=== PATIENT | female | born 1970 | race Caucasian/White ===

== ENCOUNTER 2017-02-04 10:03 | Observation (INO) ==
[2017-02-04] MEDS ORDERED: Aspirin 81 MG TAB.CHEW PO ONE (10:19)
[2017-02-04] MEDS ORDERED: Nitroglycerin 0.4 MG TAB.SUBL SL ONE (10:19)
--- NOTE | 2017-02-04 10:22 | Emergency Department Note ---
Disposition Clinical Impression: Tobacco abuse Chest pain Qualifiers: Chest pain type: unspecified Qualified Code(s): R07.9 - Chest pain, unspecified Disposition: Admitted As Inpatient Condition: Good Referrals: Curt Juarez DO [Primary Care Provider] - Forms: ED Satisfaction Letter General Adult HPI - General Chief complaint: ED Chest Pain Stated complaint: Havin chest pains Time Seen by Provider: 02/04/17 10:09 Source: patient Mode of arrival: ambulatory Limitations: no limitations Nursing Notes Reviewed: Yes Vital Signs Reviewed: Yes - History of Present Illness HPI Narrative: Patient is a 46-year-old white female with a history of hypertension who presents to the emergency department today after she was awakened at 4 AM with left-sided chest pain radiating through to her back as well as into her left- sided neck and chest associated with some mild shortness of breath. Patient states the pain has been constant and rates it an 8 out of 10 in severity this morning, and denies any diaphoresis, no nausea vomiting, no abdominal pain back pain or flank pain. Patient sees Dr. Mariano in cardiology and has currently recorder, states she has been following with him for chest pain. Patient had a remote cardiac catheterization but no recent stress testing or intervention. Patient states she was recently taken off her blood pressure medicine due to her potassium getting low. She did take her normal medications including 1 baby aspirin this morning with no change in her symptoms. Pain Scale: 8 - Related Data Home Medications Medication Instructions Recorded Confirmed Aspirin [Adult Low Dose Aspirin EC] 81 mg PO QAM 04/02/15 04/02/15 Chlorthalidone 25 mg PO QAM 04/02/15 04/02/15 Ibuprofen [Motrin] 800 mg PO Q8HR 04/02/15 04/02/15 Meclizine [Antivert] 25 mg PO BID 04/02/15 04/02/15 Pantoprazole Sodium [Protonix] 40 mg PO QAM 04/02/15 04/02/15 Ranitidine HCl [Zantac] 150 mg PO BID 04/02/15 04/02/15 Venlafaxine [Effexor] 75 mg PO BID 04/02/15 04/02/15 clonazePAM [Klonopin] 0.5 mg PO BID 04/02/15 04/02/15 hydrOXYzine HCl [Hydroxyzine HCl] 25 mg PO Q4-6H 04/02/15 04/02/15 Previous Rx's Medication Instructions Recorded Docusate [Colace] 100 mg PO BID PRN #30 capsule 04/03/15 OxyCODONE/APAP 5/325 [Percocet 1 each PO Q4HR PRN #30 tablet 04/03/15 5/325 MG] Cyclobenzaprine HCl 5 mg PO DAILY #3 tablet 04/15/16 Diclofenac Potassium 50 mg PO TID PRN #20 tablet 04/15/16 Triamcinolone Acet Dentl Paste 20 appl DT TID #1 tube 04/15/16 [Kenalog In Orabase] Ondansetron [Zofran ODT] 8 mg SL TID PRN #12 tab.rapdis 10/16/16 Sulfamethoxazole/Trimeth DS 1 each PO BID #20 tablet 10/16/16 [Bactrim DS] Tamsulosin [Flomax] 0.4 mg PO DAILY #5 cap.er.24h 10/16/16 metroNIDAZOLE [Flagyl] 500 mg PO TID #30 tablet 10/16/16 Allergies Allergy/AdvReac Type Severity Reaction Status Date / Time No Known Allergies Allergy Verified 11/14/16 11:05 All systems ED: reviewed and negative except as stated. Constitutional: Denies: fever, chills Cardiovascular: Reports: chest pain. Denies: palpitations, dyspnea on exertion , orthopnea, syncope, paroxysmal nocturnal dyspnea Respiratory: Reports: dyspnea. 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, other - Social History Smoking Status: Current every day smoker Smokeless Tobacco Status: No Alcohol use: Reports: none Drug use: Reports: none Physical Exam - General Limitations: no limitations General appearance: alert, in no apparent distress - Head Head exam: atraumatic, normocephalic, normal inspection - Eye Eye exam: Present: normal appearance, PERRL, EOMI - ENT ENT exam: normal exam, normal oropharynx, mucous membranes moist - Neck Neck exam: Present: normal inspection, full ROM - Chest Chest inspection: Present: normal inspection, symmetric chest wall rise - Respiratory Respiratory exam: Present: normal lung sounds bilaterally. Absent: respiratory distress, wheezes - Cardiovascular Cardiovascular exam: Present: regular rate, normal rhythm, normal heart sounds - Abdominal Exam Abdominal exam: Present: soft, Non-Tender, normal bowel sounds. Absent: tenderness - Extremities Exam Extremities exam: Present: normal inspection. Absent: tenderness, pedal edema - Neurological Exam Neurological exam: Present: alert, oriented X3, CN II-XII intact, normal gait, reflexes normal. Absent: motor sensory deficit - Psychiatric Psychiatric exam: Present: normal affect, normal mood - Skin Skin exam: Present: warm, dry, intact, normal color. Absent: rash, diaphoresis Course Course Narrative: Patient is 38-year-old white female who presents emergency Department with 8 out of 10 left sided chest pain since 4 AM which has been constant. Patient with a history of hypertension, nonsmoker. Patient has had a remote workup for chest pain will review patient's records to determine accurate cardiac history. She currently is seeing Dr. Mariano and has a loop recorder in place. 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 Patient is hemodynamically stable on arrival here and in no acute distress. - Reevaluation(s) Reevaluation #1: Patient is resting comfortably at bedside taxing on her phone and in no acute distress at this time. Patient is receiving a small fluid bolus for hypotension secondary to nitroglycerin administration. Patient received one sublingual nitroglycerin and currently is rating her pain a 5 out of 10 in severity from an 8 when she arrived. Pressure recheck following fluid bolus pressure remains right around 90 systolic so we will hold any further nitroglycerin. Patient is rating her pain a 5 out of 10 in severity at this time significantly improve with nitroglycerin I suspect we could have gotten her pain-free if her blood pressure would have improved. Spoke with the hospitalist regarding the patient's symptoms and feel patient would benefit from admission and further evaluation I could not find any prior stress testing or cardiac notes in regards to her currently per quarter any prior management other than old EKGs in our system. Time: 11:34 Vital Signs Temperature 98.0 F 02/04/17 10:05 Pulse Rate 99 02/04/17 10:05 Respiratory Rate 18 02/04/17 10:05 Blood Pressure 139/86 02/04/17 10:05 O2 Sat by Pulse Oximetry 95 02/04/17 10:05 Temperature 98.0 F 02/04/17 10:05 Pulse Rate 91 02/04/17 11:35 Respiratory Rate 16 02/04/17 11:35 Blood Pressure 97/64 02/04/17 11:35 O2 Sat by Pulse Oximetry 97 02/04/17 11:35 Oxygen Delivery Oxygen Delivery Room Air Medical Decision Making - Medical Records Medical records reviewed: Yes I reviewed the patient's medical records. - Lab Data Lab results reviewed: Yes I reviewed the patient's lab results. Result diagrams: 02/04/17 10:30 02/04/17 10:30 Lab Results 02/04/17 02/04/17 02/04/17 Range/Units 10:30 10:30 10:30 WBC 9.2 (4.3-11.1) K/mcL RBC 4.58 (3.82-4.97) M/mcL Hgb 14.7 (11.5-15.4) g/dL Hct 42.0 (35.3-44.9) % MCV 91.7 (83.0-100.0) fL MCH 32.1 (28.0-33.3) pg MCHC 35.0 (31.6-35.5) g/dL RDW 12.3 (11.5-14.5) % Plt Count 233 (140-400) K/mcL MPV 10.0 (9.4-12.4) fL Immature Gran % 0.3 (0-4) % Seg Neutrophils % 66.5 % Lymphocytes % 24.9 % Monocytes % 6.3 % Eosinophils % 1.7 % Basophils % 0.3 % Neutrophils # 6.1 (1.6-8.9) K/mcL Lymphocytes # 2.3 (0.6-4.6) K/mcL Monocytes # 0.6 (0.0-1.3) K/mcL Eosinophils # 0.2 (0.0-0.6) K/mcL Basophils # 0.0 (0.0-0.2) K/mcL PT 11.4 (9.4-12.1) Seconds INR 1.1 APTT 30.2 (26.0-36.0) Seconds Sodium (136-145) mEq/L Potassium (3.5-4.5) mEq/L Chloride (98-109) mEq/L Carbon Dioxide (19-29) mEq/L BUN (7-20) mg/dL Creatinine (0.57-1.11) mg/dL Est GFR ( Amer) (> 60) Est GFR (Non-Af Amer) (> 60) BUN/Creatinine Ratio (6-26) Glucose (70-99) mg/dL Calculated Osmolality (280-300) Calcium (8.6-10.8) mg/dL Troponin I (0-0.03) ng/mL B-Natriuretic Peptide 50 (0-100) pg/mL 02/04/17 02/04/17 Range/Units 10:30 10:30 WBC (4.3-11.1) K/mcL RBC (3.82-4.97) M/mcL Hgb (11.5-15.4) g/dL Hct (35.3-44.9) % MCV (83.0-100.0) fL MCH (28.0-33.3) pg MCHC (31.6-35.5) g/dL RDW (11.5-14.5) % Plt Count (140-400) K/mcL MPV (9.4-12.4) fL Immature Gran % (0-4) % Seg Neutrophils % % Lymphocytes % % Monocytes % % Eosinophils % % Basophils % % Neutrophils # (1.6-8.9) K/mcL Lymphocytes # (0.6-4.6) K/mcL Monocytes # (0.0-1.3) K/mcL Eosinophils # (0.0-0.6) K/mcL Basophils # (0.0-0.2) K/mcL PT (9.4-12.1) Seconds INR APTT (26.0-36.0) Seconds Sodium 138 (136-145) mEq/L Potassium 3.6 (3.5-4.5) mEq/L Chloride 108 (98-109) mEq/L Carbon Dioxide 22 (19-29) mEq/L BUN 10 (7-20) mg/dL Creatinine 0.72 (0.57-1.11) mg/dL Est GFR ( Amer) > 60 (> 60) Est GFR (Non-Af Amer) > 60 (> 60) BUN/Creatinine Ratio 14 (6-26) Glucose 138 H (70-99) mg/dL Calculated Osmolality 287 (280-300) Calcium 9.1 (8.6-10.8) mg/dL Troponin I 0.00 (0-0.03) ng/mL B-Natriuretic Peptide (0-100) pg/mL - Radiology Data Radiology results reviewed: Yes I reviewed the patient's radiology results. Chest X-Ray 02/04/17 10:19 IMPRESSION: 1. No acute radiographic finding to account for patient's chest pain. D/ / Андрей Petit MD / Андрей Petit MD Interpreting Provider: Андрей Petit MD - EKG Data EKG #1 EKG results narrative: Patient's EKG shows normal sinus rhythm at 85 bpm with nonspecific T wave flattening throughout which is not new compared to her prior EKG from 2016.
[2017-02-04 10:39] LABS: Basophils % 0.3 %; Eosinophils # 0.2 K/mcL (0.0-0.6); Eosinophils % 1.7 %; Hemoglobin 14.7 g/dL (11.5-15.4); Immature Granulocytes % 0.3 % (0-4); Lymphocytes # 2.3 K/mcL (0.6-4.6); Lymphocytes % 24.9 %; Mean Corpuscular Hemoglobin 32.1 pg (28.0-33.3); Mean Corpuscular Volume 91.7 fL (83.0-100.0); Monocytes # 0.6 K/mcL (0.0-1.3); Monocytes % 6.3 %; Neutrophils # 6.1 K/mcL (1.6-8.9); Platelet Count 233 K/mcL (140-400); Red Blood Count 4.58 M/mcL (3.82-4.97); Red Cell Distribution Width 12.3 % (11.5-14.5); Segmented Neutrophils % 66.5 %
[2017-02-04 10:44] LABS: INR 1.1; Prothrombin Time 11.4 Seconds (9.4-12.1)
[2017-02-04] MEDS ORDERED: 0.9 % Sodium Chloride 500 ML IVC ONE (10:46)
[2017-02-04 10:47] LABS: Activated Partial Thrombo Time 30.2 Seconds (26.0-36.0)
[2017-02-04 10:51] LABS: BUN/Creatinine Ratio 14 (6-26); Blood Urea Nitrogen 10 mg/dL (7-20); Calcium 9.1 mg/dL (8.6-10.8); Carbon Dioxide 22 mEq/L (19-29); Chloride 108 mEq/L (98-109); Glucose 138 mg/dL (70-99); Osmolality,Calculated 287 (280-300); Potassium 3.6 mEq/L (3.5-4.5); Sodium 138 mEq/L (136-145); eGFR For African Americans > 60 (> 60); eGFR For Non-African Americans > 60 (> 60)
[2017-02-04] MEDS ORDERED: Naloxone 0.4 MG/ML INJ IVP PRN (12:06)
[2017-02-04] MEDS ORDERED: Acetaminophen 325 MG TABLET PO PRN (12:06)
[2017-02-04] MEDS ORDERED: Ondansetron 4 MG/2 ML VIAL IVP PRN (12:06)
[2017-02-04] MEDS ORDERED: *HR* Morphine 2 MG/ML SYRINGE IVP PRN (12:06)
[2017-02-04] MEDS ORDERED: Nitroglycerin 0.4 MG TAB.SUBL SL PRN (12:12)
--- NOTE | 2017-02-04 12:35 | Internal Med History&Physical ---
<Carlos Ford - Last Filed: 02/04/17 13:10> Date of Encounter: 02/04/17 Time of Encounter: 11:00 Assessment and Plan (1) Chest pain Current visit: Yes Status: Acute Acute on chronic chest pain that pt. states has been occurring for the past five years. She states the CP began this morning at 4 a.m. and presented as left -sided chest pain that radiated to her left neck and left shoulder blade. Denies recent echocardiogram or stress test. Reports she had heart catheterization previously w/o stent placement. Echocardiogram ordered. NPO at midnight for ordered a.m. nuclear pharm stress test. Initial troponin 0.00. Will trend x2. Continuous cardiac telemetry. Continue aspirin therapy. Pt. at high risk for cardiac event based on hx of CP, current sx, tobacco abuse, and familial hx. Observation. Qualifiers: Chest pain type: other chest pain Qualified Code(s): R07.89 - Other chest pain; R07.8 - Other chest pain (2) Dizziness Current visit: Yes Status: Acute Acute dizziness that pt. reports accompanies chest pain sx. Orthostatic BPs and VS. Bilateral carotid Doppler duplex imaging. Falls/safety precautions. (3) Arthritis Current visit: Yes Status: Chronic Hx of chronic arthritis. Stair-step pain medications for pain management. (4) Tobacco abuse Current visit: Yes Status: Chronic Hx of chronic tobacco abuse. Pt. states she smokes 1/2 PPD and has no intent to quit at this time. Denies need for nicotine patch while inpatient. (5) GERD (gastroesophageal reflux disease) Current visit: Yes Status: Chronic Hx of chronic GERD. Pt. states she takes Protonix and Zantac but feels they are not working. Patient had previous EGD and colonoscopy due to GERD complaints which revealed pre-cancerous polyps in colon (removed). IVP Zofran Q6 PRN for nausea. IVP Protonix 40 mg BID. Qualifiers: Esophagitis presence: esophagitis presence not specified Qualified Code(s) : K21.9 - Gastro-esophageal reflux disease without esophagitis (6) DVT prophylaxis Current visit: Yes Status: Acute Lovenox 40 mg 0600 daily for DVT prophylaxis. Internal Medicine - H&P: HPI Chief complaint: Chest pain Admitted From: Emergency Dept Plans for Post Hospital Care: Home History of present illness: Ms. Jesus is a 46 year old female with medical hx of arthritis, GERD, and previous heart catheterization resulting in no stent placement presents from the ED with chief complaint of chest pain that she states has been having for 5 years intermittently w/nausea. She states the CP began this morning at 4 a.m. and presented as left-sided chest pain that radiated to her left neck and left shoulder blade. Pt. reports nausea and abdominal pain r/t GERD and dizziness. Pt. denies recent illness, SOB, fever, chills, cough, changes in vision, unusual bleeding, numbness, tingling, headache, urinary difficulty or issues, diarrhea, constipation, pre-syncope, or syncope. Past Med Surg Social Fam HX - Past Medical History Source: patient, old records reviewed Medical history: arthritis, GERD, other Psychiatric history: anxiety, depression - Past Surgical History Surgical History: angioplasty/stent (No stent placement), appendectomy, orthopedic, other (Left knee meniscus repair), other (Tubal ligation, Uterine ablation) - Social History Smoking Status: Current every day smoker Packs per day: 1/2 PPD Smokeless Tobacco Status: No Alcohol use: none Drug use: none Occupational status: employed Current living situation: Home, With Family Activity Level: Independent ambulation Recent Out of Country Travel Within the Last 8 Weeks: No Exposure or Possible Exposure to Illness During Travel: No - Family History Father Race: Family Member Ethnicity: Non- Living Status: Age at : 71 Cause of : Prostate cancer Hx Family Cancer: Yes (Prostate) Hx Family Endocrine Disorder: Yes (DM) Mother Race: Family Member Ethnicity: Non- Living Status: Age at : 80 Cause of : VA Hx Family Cardiac Disorders: Yes (VA, HTN) Brother Race: Family Member Ethnicity: Non- Living Status: Still Living Hx Family Cardiac Disorders: Yes (CAD, VA, Stents, Open heart surgery) Hx Family Respiratory Disorders: Yes (COPD, emphysema) Hx Family Endocrine Disorder: Yes (DM) Sister Race: Family Member Ethnicity: Non- Living Status: Still Living Hx Family Cardiac Disorders: Yes (CAD, Stents) Internal Medicine - H&P: Meds Aspirin [Adult Low Dose Aspirin EC] 81 mg PO QAM 04/02/15 [History] Ibuprofen [Motrin] 800 mg PO Q8HR 04/02/15 [History] Pantoprazole Sodium [Protonix] 40 mg PO QAM 04/02/15 [History] Ranitidine HCl [Zantac] 150 mg PO BID 04/02/15 [History] Venlafaxine [Effexor] 75 mg PO BID 04/02/15 [History] clonazePAM [Klonopin] 0.5 mg PO BID 04/02/15 [History] hydrOXYzine HCl [Hydroxyzine HCl] 25 mg PO Q4-6H PRN 04/02/15 [History] Buspirone HCl [Buspar] 10 mg PO BID 02/04/17 [History] Simvastatin [Zocor] 20 mg PO QPM 02/04/17 [History] 3 Allergy/AdvReac Type Severity Reaction Status Date / Time No Known Allergies Allergy Verified 11/14/16 11:05 All Systems PM: A 10-system review of systems was performed and is negative for pertinent findings except as documented above in the HPI. - Constitutional Constitutional: no chills, no fever(s), no night sweats - EENT Eyes: no change in vision, no discharge, no pain, no photophobia Ears: no ear discharge, no ear pain, no tinnitus Nose, mouth and throat: no dysphagia, no nasal discharge, no neck pain, no sore throat - Breasts Breasts: as per HPI - Cardiovascular Cardiovascular ROS IM: as per HPI, chest pain, dyspnea - Respiratory Respiratory: as per HPI, dyspnea - Gastrointestinal Gastrointestinal: as per HPI, abdominal pain, heartburn, nausea - Genitourinary Genitourinary: no change in urinary stream, no dysuria, no flank pain, no hematuria Menstruation: as per HPI, other Additional comments: Uterine ablation - Musculoskeletal Musculoskeletal ROS IM: as per HPI, arthralgias, no numbness, no tingling - Integumentary Integumentary IM: no rash, no unusual bruising - Neurological Neurological ROS: no confusion, no convulsions, no focal weakness, no numbness, no tingling, no tremor(s) - Psychiatric Psychiatric: as per HPI, anxiety, depression - Endocrine Endocrine IM: as per HPI - Hematologic/Lymphatic Hematologic/Lymphatic: no easy bruising - Allergic/Immunologic Allergic/Immunologic: as per HPI - Constitutional Vitals: Temp Pulse Resp BP Pulse Ox 98.0 F 68 16 109/73 96 02/04/17 10:05 02/04/17 12:00 02/04/17 12:00 02/04/17 12:00 02/04/17 12:00 General appearance: Present: cooperative, A&O X 3, pleasant, no acute distress, obese, answers questions appropriately - Head Head exam: Present: atraumatic, normal inspection, normocephalic - Eye Eye exam: Present: PERRL, conjuntiva pink, sclera anicteric Pupils: Present: PERRL - ENT ENT exam: Present: normal exam, normal external ear exam - Neck Neck exam general surgery: Present: normal inspection, supple, trachea midline. Absent: lymphadenopathy - Respiratory Respiratory exam: Present: CTAB. Absent: accessory muscle use, rales, rhonchi, wheezes - Cardiovascular Cardiovascular exam: Present: RRR, +S1, +S2. Absent: diastolic murmur, gallop, rubs, systolic murmur - GI/Abdominal GI/Abdominal exam: Present: normal bowel sounds, soft, no peritoneal signs. Absent: distended, tenderness - Rectal Rectal exam: Present: deferred - Additional comments: exam deferred. - Extremities Exam Extremities exam: Present: warm, radial pulses palpable and symmetrical. Absent : calf tenderness, cyanotic, pedal edema - Back Exam Back exam: Present: normal inspection - Neurological Exam Neurological exam: Present: CN II-XII intact, oriented X3, no focal deficits. Absent: pronater drift, facial droop, speech deficit - Psychiatric Psychiatric exam: Present: normal affect, normal mood - Skin Skin exam: Present: dry, intact Internal Med - H&P Results - Labs CBC & Chem 7: 02/04/17 10:30 02/04/17 10:30 - EKG Data EKG shows normal: sinus rhythm - EKG Data Prior EKG available for review: yes When compared to previous EKG: there is no significant change Interpretation IM: other (Borderline ECG) EKG comments: 02/04/17 12:42 EKG dated 11/14/16 shows sinus rhythm with nonspecific ST and T-wave abnormality. EKG dated 02/04/17 shows sinus rhythm with nonspecific T-wave abnormality. Borderline ECG. - Diagnostic Studies Chest x-ray Additional comments: Impressions Chest X-Ray 02/04/17 10:19 IMPRESSION: 1. No acute radiographic finding to account for patient's chest pain. D/ / Андрей Petit MD / Андрей Petit MD Interpreting Provider: Андрей Petit MD <Dusty Jones P - Last Filed: 02/05/17 13:37> Date of Encounter: 02/05/17 Internal Medicine - H&P: HPI History of present illness: Ms. Jesus is a 46 year old female All Systems PM: A 10-system review of systems was performed and is negative for pertinent findings except as documented above in the HPI. - Constitutional Vitals: Temp Pulse Resp BP Pulse Ox 98.0 F 70 16 115/75 94 02/05/17 10:45 02/05/17 10:45 02/05/17 10:45 02/05/17 10:45 02/05/17 10:45 Internal Med - H&P Results - Labs CBC & Chem 7: 02/05/17 05:35 02/05/17 05:35 Labs: Short CBC 02/05/17 Range/Units 05:35 WBC 7.9 (4.3-11.1) K/mcL Hgb 14.2 (11.5-15.4) g/dL Hct 42.2 (35.3-44.9) % Plt Count 235 (140-400) K/mcL Neutrophils # 4.4 (1.6-8.9) K/mcL BMP 02/05/17 05:35 Sodium 138 Potassium 4.2 Chloride 109 Carbon Dioxide 23 BUN 11 Creatinine 0.72 Glucose 103 H Calcium 9.0 Cardiac Enzymes 02/04/17 02/04/17 Range/Units 14:19 20:18 Troponin I 0.00 0.00 (0-0.03) ng/mL Liver Function 02/05/17 Range/Units 05:35 Total Bilirubin 0.3 (0.2-1.2) mg/dL AST 14 (5-34) Units/L ALT 14 (0-55) Units/L Alkaline Phosphatase 94 (38-126) Units/L Albumin 3.0 L (3.5-5.0) g/dL - Attending Attestation I examined this patient and my medical decision-making was reviewed with the Resident Physician/TRACK MAINTAINER. I agree with the documented findings, disposition and treatment plan as described except to the extent set forth below. agree with below.
[2017-02-04] MEDS ORDERED: hydrOXYzine pamoate 25 MG CAPSULE PO PRN (12:44)
[2017-02-04 15:12] LABS: Hemoglobin A1C 5.1 %
[2017-02-04] MEDS: Pantoprazole 40 MG VIAL IVP SCH (17:48)
[2017-02-04] MEDS: clonazePAM 0.5 MG TABLET PO SCH (21:02)
[2017-02-04] MEDS: *HR* HYDROcodone/Acet 5/325 mg TABLET PO PRN (21:09)
[2017-02-05] MEDS: *HR* HYDROcodone/Acet 5/325 mg TABLET PO PRN ×2 (01:22→05:48)
[2017-02-05 05:47] LABS: Basophils % 0.4 %; Eosinophils # 0.2 K/mcL (0.0-0.6); Eosinophils % 2.5 %; Hematocrit 42.2 % (35.3-44.9); Hemoglobin 14.2 g/dL (11.5-15.4); Immature Granulocytes % 0.4 % (0-4); Lymphocytes # 2.7 K/mcL (0.6-4.6); Lymphocytes % 33.9 %; Mean Corpuscular HGB Conc 33.6 g/dL (31.6-35.5); Mean Corpuscular Hemoglobin 31.2 pg (28.0-33.3); Mean Corpuscular Volume 92.7 fL (83.0-100.0); Mean Platelet Volume 9.7 fL (9.4-12.4); Monocytes # 0.6 K/mcL (0.0-1.3); Monocytes % 7.2 %; Neutrophils # 4.4 K/mcL (1.6-8.9); Platelet Count 235 K/mcL (140-400); Red Blood Count 4.55 M/mcL (3.82-4.97); Red Cell Distribution Width 12.3 % (11.5-14.5); Segmented Neutrophils % 55.6 %
[2017-02-05] MEDS: Pantoprazole 40 MG VIAL IVP SCH (05:48)
[2017-02-05 05:54] LABS: INR 1.1; Prothrombin Time 11.7 Seconds (9.4-12.1)
[2017-02-05 05:57] LABS: Activated Partial Thrombo Time 28.8 Seconds (26.0-36.0)
[2017-02-05] MEDS ORDERED: *HR* Enoxaparin 40 MG/0.4 ML SYRINGE SQ SCH (06:00)
[2017-02-05 06:22] LABS: Alanine Aminotransferase 14 Units/L (0-55); Albumin/Globulin Ratio 0.8 (1.1-2.2); Alkaline Phosphatase 94 Units/L (38-126); Aspartate Amino Transferase 14 Units/L (5-34); BUN/Creatinine Ratio 15 (6-26); Bilirubin,Total 0.3 mg/dL (0.2-1.2); Blood Urea Nitrogen 11 mg/dL (7-20); Carbon Dioxide 23 mEq/L (19-29); Chloride 109 mEq/L (98-109); Chol/HDL Ratio 6.2 (0-4.9); Cholesterol 160 mg/dL (< 200); Globulin 3.8 g/dL (2.4-3.5); Glucose 103 mg/dL (70-99); HDL Cholesterol 26 mg/dL (40-59); LDL Cholesterol,Calculated 106 mg/dL (0-99); Magnesium 1.9 mg/dL (1.6-2.6); Osmolality,Calculated 286 (280-300); Potassium 4.2 mEq/L (3.5-4.5); Sodium 138 mEq/L (136-145); Total Protein 6.8 g/dL (6.0-8.3); Triglycerides 139 mg/dL (< 150); eGFR For African Americans > 60 (> 60); eGFR For Non-African Americans > 60 (> 60)
[2017-02-05] MEDS ORDERED: Regadenoson 0.4 MG/5 ML SYRINGE IVP ONE (06:33)
--- NOTE | 2017-02-05 07:10 | Electrocardiograph Report ---
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
[2017-02-05] MEDS ORDERED: Aspirin Enteric Coated 81 MG Tablet PO SCH (09:00)
[2017-02-05] MEDS: clonazePAM 0.5 MG TABLET PO SCH (09:00)
--- NOTE | 2017-02-05 12:22 | Internal Med Progress Note ---
Date of Encounter: 02/05/17 Time of Encounter: 10:15 - Assessment and plan (1) Chest pain Current Visit: Yes Status: Acute Assessment and plan: Pt reports intermittent chest pain for 5 years. On the day of admission, pt had left chest pain that she states was sharp and radiated into her left mid back and left arm. She said that it started out to be intermittent, then became stead. Onset at 0400 and was relieved with nitroglycerin in the ED. Pt has been pain free since. Chest xray negative. Echocardiogram with LVEF of 65%, normal LV chamber size and function, mild concentric LVH, trace MR. Bilateral carotids are essentially normal. Troponins negative. Patient has stress test with a gaited EF of 60% and a medium sized, moderate intensity, mostly reversible inferior perfusion defect suggestive of ischemia. Cardiology has been consulted, consultation is pending. Patient is aware of test results and consultation. Continue telemetry Cardiology consultation pending. I appreciate their consultation and recommendations. Continue aspirin, statin. We will add beta nuris or other medication at recommendation of cardiology. Patient is on Lovenox for DVT prophylaxis. Chest X-Ray 02/04/17 10:19 IMPRESSION: 1. No acute radiographic finding to account for patient's chest pain. D/ / Андрей Petit MD / Андрей Petit MD Interpreting Provider: Андрей Petit MD Echocardiogram 02/04/17 12:09 Impressions: Technically adequate exam. Normal sinus rhythm. LVEF 65%. Normal LV chamber size, and function. Mild concentric left ventricular hypertrophy. Trace mitral regurgitation. Left Ventricular Wall Motion: Rest Echo Findings All wall segments showed normal motion. Qualifiers: Chest pain type: other chest pain Qualified Code(s): R07.89 - Other chest pain; R07.8 - Other chest pain (2) GERD (gastroesophageal reflux disease) Current Visit: Yes Status: Chronic Assessment and plan: Patient reports chronic GERD symptoms that have been increasing over time. She had recent endoscopy in December,. Normal duodenum, gastritis, biopsies taken. Patient will continue home medications and follow-up with primary care after discharge. Qualifiers: Esophagitis presence: esophagitis presence not specified Qualified Code(s) : K21.9 - Gastro-esophageal reflux disease without esophagitis (3) Tobacco abuse Current Visit: Yes Status: Chronic Assessment and plan: Patient reports smoking 1 pack cigarettes per day. She says that she is interested in quitting, however every method I discussed with her she did not want to try. We will continue to encourage smoking cessation before discharge. (4) Arthritis Current Visit: Yes Status: Chronic Assessment and plan: Chronic. Pain medications from home. Continue. (5) Dizziness Current Visit: Yes Status: Acute Assessment and plan: Patient reported acute onset dizziness and accompanied chest pain that brought her to the emergency department. Results as above. She denies dizziness since arrival. (6) DVT prophylaxis Current Visit: Yes Status: Acute Assessment and plan: Lovenox subcutaneous - Time Spent With Patient less than 15 minutes - Constitutional Vitals: Temp Pulse Resp BP Pulse Ox 98.0 F 70 16 115/75 94 02/05/17 10:45 02/05/17 10:45 02/05/17 10:45 02/05/17 10:45 02/05/17 10:45 General appearance: Present: cooperative, A&O X 3, pleasant, no acute distress, obese, answers questions appropriately - Head Head exam: Present: atraumatic, normal inspection, normocephalic - Eye Eye exam: Present: normal appearance, conjuntiva pink, sclera anicteric - Neck Neck exam general surgery: Present: supple, trachea midline. Absent: lymphadenopathy - Respiratory Respiratory exam: Present: CTAB. Absent: accessory muscle use, chest wall tenderness, decreased breath sounds, rales, respiratory distress, rhonchi, wheezes - Cardiovascular Cardiovascular exam: Present: RRR, +S1, +S2. Absent: diastolic murmur, gallop, rubs, systolic murmur - GI/Abdominal GI/Abdominal exam: Present: normal bowel sounds, soft, no peritoneal signs. Absent: distended, hepatomegaly, tenderness - Extremities Exam Extremities exam: Present: normal capillary refill, normal inspection, warm, radial pulses palpable and symmetrical. Absent: calf tenderness, cyanotic, pedal edema, tenderness - Neurological Exam Neurological exam: Present: alert, oriented X3, no focal deficits. Absent: facial droop, speech deficit - Skin Skin exam: Present: dry, intact, normal color, warm. Absent: rash Internal Medicine: Result - Labs CBC & Chem 7: 02/05/17 05:35 02/05/17 05:35 Labs: Short CBC 02/05/17 Range/Units 05:35 WBC 7.9 (4.3-11.1) K/mcL Hgb 14.2 (11.5-15.4) g/dL Hct 42.2 (35.3-44.9) % Plt Count 235 (140-400) K/mcL Neutrophils # 4.4 (1.6-8.9) K/mcL BMP 02/05/17 05:35 Sodium 138 Potassium 4.2 Chloride 109 Carbon Dioxide 23 BUN 11 Creatinine 0.72 Glucose 103 H Calcium 9.0 Cardiac Enzymes 02/04/17 02/04/17 Range/Units 14:19 20:18 Troponin I 0.00 0.00 (0-0.03) ng/mL Liver Function 02/05/17 Range/Units 05:35 Total Bilirubin 0.3 (0.2-1.2) mg/dL AST 14 (5-34) Units/L ALT 14 (0-55) Units/L Alkaline Phosphatase 94 (38-126) Units/L Albumin 3.0 L (3.5-5.0) g/dL - ABG Interpretation ABG results: PT/INR, D-dimer PT 11.7 Seconds (9.4-12.1) 02/05/17 05:35 Consult Discharge Plan - Plan Referrals: Curt Juarez DO [Primary Care Provider] -
--- NOTE | 2017-02-05 13:23 | Cardiology Consult Note ---
<Rafael Reece - Last Filed: 02/05/17 14:19> Date of Encounter: 02/05/17 Time of Encounter: 13:20 Assessment and Plan (1) Chest pain Current Visit: Yes Status: Acute Per Cardiology: Developed symptoms at rest. Troponins negative 3. Currently chest pain-free. Reports increasing fatigue. Qualifiers: Chest pain type: other chest pain Qualified Code(s): R07.89 - Other chest pain; R07.8 - Other chest pain (2) Abnormal nuclear cardiac imaging test Current Visit: Yes Status: Acute Per Cardiology: ST: Impression: Pharmacologic stress ECG is non-diagnostic for ischemia due to baseline non-specific ST and T changes. Gated EF = 68%. Medium sized, moderate intensity, mostly reversible inferior perfusion defect suggestive of ischemia. Echo showed EF preserved at 65%, trace MR, NSWMA. Patient with left heart catheterization May 2009 with per review of records no major blockages. Negative stress test over the past few years. I had lengthy discussion with patient and son regarding further ischemic evaluation patient agreeable to proceed. Will discuss and review with Dr. Baumann. Discussed with Dr. Dukes, plan for left heart catheterization today. Further recommendations after catheterization. Currently on aspirin and statin. (3) Tobacco abuse Current Visit: Yes Status: Chronic Per Cardiology: I did spend 3-5 minutes today providing smoking cessation counseling and education. Discussion w patient/family: The assessment and plan as outlined above was discussed with the patient and/or family members who expressed understanding and agreement. All questions were answered. Thank you for involving us in the care of your patient. Please call with any questions. History of Present Illness Consult date: 02/05/17 Requesting physician: Shamika Gonzáles Consult reason: Abnormal Stress test Chief complaint: CP History of present illness: Ms. Jesus is a 46 year old female with relevant past medical history of GERD, nicotine abuse, anxiety, depression. Cardiology consult for abnormal stress test results. Patient seen in the sun today at bedside. Reports over the past few months increasing overall fatigue. She denies any chest pain symptoms. She does report Sunday morning she awakened around 4 AM with sudden onset of left-sided midsternal stabbing pain through to her mid scapular region with left arm numbness and tingling and radiation to her left neck and jaw. She reports symptoms lasted for about 5 hours total. Currently chest pain-free. She reports she continues to smoke about a half a pack to one pack per day for the past 34 years. Reports family history with mother dying from an HI in her 70s, sister with stenting in her early 50s, and brother with CAD with CABG in his 40s. She denies any active bleeding or blood loss. She reports she does follow with Dr. Tex Mariano and has a loop recorder in place. Denies any known history of A. fib and not on anticoagulation. Past Med Surg Social Fam HX - Past Medical History Attestation: Yes The following information was validated with the patient. Source: patient, old records reviewed Medical history: arthritis, GERD, other Psychiatric history: anxiety, depression - Past Surgical History Surgical History: angioplasty/stent, appendectomy, orthopedic, other, other - Social History Smoking Status: Current every day smoker Packs per day: 1/2 PPD Smokeless Tobacco Status: No Alcohol use: none Drug use: none - Family History Father Race: Family Member Ethnicity: Non- Living Status: Age at : 71 Cause of : Prostate cancer Hx Family Cancer: Yes (Prostate) Hx Family Endocrine Disorder: Yes (DM) Mother Name: Caren Olivares Race: Family Member Ethnicity: Non- Living Status: Age at : 70 Cause of : heart attack Hx Family Cardiac Disorders: Yes Brother Race: Family Member Ethnicity: Non- Living Status: Still Living Hx Family Cardiac Disorders: Yes (CAD, HI, Stents, Open heart surgery) Hx Family Respiratory Disorders: Yes (COPD, emphysema) Hx Family Endocrine Disorder: Yes (DM) Sister Race: Family Member Ethnicity: Non- Living Status: Still Living Hx Family Cardiac Disorders: Yes (CAD, Stents) Medications and Allergies Aspirin [Adult Low Dose Aspirin EC] 81 mg PO QAM 04/02/15 [History] Ibuprofen [Motrin] 800 mg PO Q8HR 04/02/15 [History] Pantoprazole Sodium [Protonix] 40 mg PO QAM 04/02/15 [History] Ranitidine HCl [Zantac] 150 mg PO BID 04/02/15 [History] Venlafaxine [Effexor] 75 mg PO BID 04/02/15 [History] clonazePAM [Klonopin] 0.5 mg PO BID 04/02/15 [History] hydrOXYzine HCl [Hydroxyzine HCl] 25 mg PO Q4-6H PRN 04/02/15 [History] Buspirone HCl [Buspar] 10 mg PO BID 02/04/17 [History] Simvastatin [Zocor] 20 mg PO QPM 02/04/17 [History] 3 Allergy/AdvReac Type Severity Reaction Status Date / Time No Known Allergies Allergy Verified 11/14/16 11:05 All Systems Review: A 10-system review of systems was performed and is negative for pertinent findings except as documented above in the HPI. - Constitutional Constitutional: fatigue - Cardiovascular Cardiovascular: as per HPI, chest pain at rest, radiating jaw, neck or arm pain Physical Examination Vital Signs, Last 4 Hours Temp Pulse Resp BP Pulse Ox 02/05/17 10:45 98.0 F 70 16 115/75 94 General: Conversant, No Apparent Distress HEENT: Atraumatic, Normocephaly, Mucus Membranes Moist Neck: No JVD, Normal carotid pulses Cardiac: Reg Rate and Rhythm, Normal S1 and S2, No Murmur Lungs: Normal Breath Sounds, No Wheeze, Rales, Rhonchi Neuro: Alert and responsive, No focal deficits noted Abdomen: Soft, Non-Tender Skin: No rashes noted on visualized skin Musculoskeletal: No Chest Wall Tenderness Extremities: No Clubbing, No Cyanosis, No Edema, Normal Pulses Results 02/05/17 05:35 02/05/17 05:35 Lab Results Laboratory Tests 02/04/17 02/04/17 02/04/17 10:30 10:30 14:19 INR Hemoglobin A1c 5.1 Magnesium AST ALT Troponin I 0.00 B-Natriuretic Peptide 50 LDL Cholesterol, Calc 02/04/17 02/04/17 02/05/17 14:19 20:18 05:35 INR 1.1 Hemoglobin A1c Magnesium AST ALT Troponin I 0.00 0.00 B-Natriuretic Peptide LDL Cholesterol, Calc 02/05/17 05:35 INR Hemoglobin A1c Magnesium 1.9 AST 14 ALT 14 Troponin I B-Natriuretic Peptide LDL Cholesterol, Calc 106 H ITS Impressions Chest X-Ray 02/04/17 10:19 IMPRESSION: 1. No acute radiographic finding to account for patient's chest pain. D/ / Андрей Petit MD / Андрей Petit MD Interpreting Provider: Андрей Petit MD Echocardiogram 02/04/17 12:09 Impressions: Technically adequate exam. Normal sinus rhythm. LVEF 65%. Normal LV chamber size, and function. Mild concentric left ventricular hypertrophy. Trace mitral regurgitation. Left Ventricular Wall Motion: Rest Echo Findings All wall segments showed normal motion. Findings: Study Quality * Technically adequate exam. ECG Findings * Normal sinus rhythm. Left Ventricle * LVEF 65%. * Normal LV chamber size, and function. * Mild concentric left ventricular hypertrophy. Right Ventricle * Normal right ventricular structure and function. Left Atrium * Normal left atrial size. Right Atrium * Normal right atrial size. Aortic Valve * Trileaflet aortic valve. * Trileaflet aortic valve with normal function. Mitral Valve * Normal mitral valve structure and function. * Trace mitral regurgitation. Tricuspid Valve * Normal tricuspid valve structure and function. * Normal tricuspid valve function. * Trace tricuspid regurgitation. Pulmonic Valve * Pulmonic valve is not well visualized. Aorta * Normally sized aortic root. Pericardium * The pericardium appears normal. Active Medications Acetaminophen (Tylenol) 650 mg PO Q6HR PRN PRN Reason: Mild Pain (1-3) Stop: 08/06/17 12:07 Hydrocodone Bitart/Acetaminophen ([place] 5-325 Mg) 1 tab PO Q4HR PRN PRN Reason: Moderate Pain (4-6) Stop: 08/06/17 12:07 Last Admin: 02/05/17 05:48 Dose: 1 tab Aspirin (A[facility]in Ec) [facility] [place] Stop: 08/07/17 09:01 Buspirone HCl (Buspar) 10 mg PO BID [facility] Stop: 08/06/17 21:01 Last Admin: 02/04/17 21:02 Dose: 10 mg Clonazepam (Klonopin) 0.5 mg PO BID [facility] Stop: 08/06/17 21:01 Last Admin: 02/04/17 21:02 Dose: 0.5 mg Enoxaparin Sodium (Lovenox) 40 mg SQ 0600 [facility] PRN Reason: Protocol Stop: 08/07/17 06:01 Last Admin: 02/05/17 05:48 Dose: 40 mg Hydroxyzine Pamoate (Hydroxyzine Pamoate) 25 mg PO Q6H PRN PRN Reason: Anxiety Stop: 08/06/17 12:45 Morphine Sulfate (Morphine Sulfate) 2 mg IVP Q4HR PRN PRN Reason: Severe Pain (7-10) Stop: 08/06/17 12:07 Naloxone HCl (Narcan) 0.4 mg IVP Q2MIN PRN PRN Reason: Opioid Reversal Stop: 08/06/17 12:07 Nitroglycerin (Nitroglycerin) 0.4 mg SL Q5MIN PRN PRN Reason: Chest Pain Stop: 08/06/17 12:13 Ondansetron HCl (Zofran) 4 mg IVP Q6HR PRN PRN Reason: Nausea And Vomiting Stop: 08/06/17 12:07 Pantoprazole Sodium (Protonix) 40 mg IVP Q12HR [facility] Stop: 08/06/17 18:01 Last Admin: 02/05/17 05:48 Dose: 40 mg Simvastatin (Zocor) 20 mg PO QPM [facility] PRN Reason: Protocol Stop: 08/06/17 18:01 Last Admin: 02/04/17 17:48 Dose: 20 mg Venlafaxine HCl (Effexor) 75 mg PO BID [facility] Stop: 08/06/17 21:01 Last Admin: 02/04/17 21:02 Dose: 75 mg - Imaging and Cardiology Stress Test: report reviewed Echo: report reviewed - EKG Interpretation EKG results cardiology: personally reviewed, normal ECG, sinus rhythm, no diagnostic ischemia Consult Discharge Plan - Plan Referrals: Curt Juarez, [Primary Care Provider] - <Estefani Baumann - Last Filed: 02/05/17 16:49> Date of Encounter: 02/05/17 - Attending Attestation I have personally performed a face to face evaluation on this patient with EMPLOY[employer] TRA[employer]IST. I have reviewed and agree with the care plan. Ms. Jesus underwent [facility] for abnormal stress testing. 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 Recommend continuing aspirin and statin. Discussed risk factor reduction - recommended smoking cessation, aerobic exercise and healthy diet. Will sign off. Please call with questions. Assessment and Plan Discussion w patient/family: The assessment and plan as outlined above was discussed with the patient and/or family members who expressed understanding and agreement. All questions were answered. Thank you for involving us in the care of your patient. Please call with any questions. History of Present Illness History of present illness: Ms. Jesus is a 46 year old female All Systems Review: A 10-system review of systems was performed and is negative for pertinent findings except as documented above in the HPI. Physical Examination Vital Signs, Last 4 Hours Temp Pulse Resp BP Pulse Ox 02/05/17 16:41 57 18 116/79 97 02/05/17 16:15 60 116/71 95 02/05/17 15:57 59 18 118/77 95 02/05/17 15:42 98.1 F 60 18 114/73 95 02/05/17 14:26 97.9 F 69 16 122/83 95 Results 02/05/17 05:35 02/05/17 05:35 Lab Results 02/04/17 02/05/17 02/05/17 20:18 05:35 05:35 WBC 7.9 Hgb 14.2 Hct 42.2 Plt Count 235 INR 1.1 APTT 28.8 Sodium Potassium Chloride Carbon Dioxide BUN Creatinine Glucose Calcium Magnesium Total Bilirubin AST ALT Alkaline Phosphatase Troponin I 0.00 02/05/17 05:35 WBC Hgb Hct Plt Count INR APTT Sodium 138 Potassium 4.2 Chloride 109 Carbon Dioxide 23 BUN 11 Creatinine 0.72 Glucose 103 H Calcium 9.0 Magnesium 1.9 Total Bilirubin 0.3 AST 14 ALT 14 Alkaline Phosphatase 94 Troponin I
[2017-02-05] MEDS ORDERED: Heparin 1,000 UNITS/500 mL NS 500 ML ONE (14:17)
[2017-02-05] MEDS ORDERED: *HR* Heparin 10,000 UNIT/10 ML VIAL ONE (14:17)
[2017-02-05] MEDS ORDERED: 0.9 % Sodium Chloride 1,000 ML ONE ×2 (14:17→14:54)
--- NOTE | 2017-02-05 14:23 | Pre-Sedation Evaluation ---
Pre-sedation evaluation - Pre-sedation checklist Date of procedure: 02/05/17 Procedure: C Recent Vitals: Last Vital Signs Temp 98.0 F 02/05/17 10:45 Pulse 70 02/05/17 10:45 Resp 16 02/05/17 10:45 BP 115/75 02/05/17 10:45 Pulse Ox 94 02/05/17 10:45 H&P (including ROS) documented in medical record: Yes Dietary Status: NPO after Midnight ASA Classification *see protocol: CLASS II-Mild systemic disease Plan of Care: Pt appropriate candidate for procedure/moderate/conscious sedation
[2017-02-05] MEDS ORDERED: *HR* Midazolam HCl 2 MG/2 ML VIAL ONE (14:57)
[2017-02-05] MEDS ORDERED: *HR* FentaNYL (PF) 100 MCG/2 ML VIAL ONE (14:58)
--- NOTE | 2017-02-05 15:31 | Invasive Diagnostic Lab Proc ---
Name: Dianelys Jesus Date of Study: 02/05/2017 Date: 1970 Ht: 68.1in Medical Record#: [id number] Age: 46 Wt: 216.93lb Gender: Female BSA: 2.12 Order #: [id number] BMI: 32.88 Physicians Procedure Physician: Cinthia Dukes MD Referring MD: Referring MD: Staff Name Position Time In [facility], [facility] RT (R) Scrub 02:54 PM Preeti Parra RN Monitor 02:54 PM Estelle Gaspar RN Marine Erector 02:54 PM Karyna Strong RN Monitor 03:05 PM Indications Indication Abnormal Test - Stress Procedures Performed Procedure L HRT ARTERY/VENTRICLE ANGIO Pre-Procedure Checklist Informed consent is complete signed and on chart. H&P is on chart. ID band is on and ID verified with patient. Patient NPO for procedure The procedure was described for the patient and questions were answered. Blood Pressure: 115/75 ECG is on chart. Plan of Care Patient will tolerate the procedure without complications. Adequate level of comfort will be maintained. Hemodynamics will remain stable Patient will recover from procedure without complications. Respiratory function will be maintained. Cardiac rhythm will remain stable. Patient temperature will be maintained. Patient and/or family have verbalized understanding of the procedure. Patient Education Chief Complaint/Reason for Test: Cardiac Cath Developmental Category: Adult (18-64 years) Developmentally Appropriate for Age: Yes Learning Barriers: None Education Needs: Procedure Education Method: Verbal Information Taught: Cardiac Cath Educational Evaluation: Able to repeat information Intravenous Access Time IV Size Location DC'd Fluid/Drip Rate Units RN 02:31 PM 18g 1 03/29" Patent On Arrival Lt Antecubital 0.9NaCl 50 ml/hr Estelle Gaspar RN Allergies NKDA No Known Allergies Vital Signs Time BP (mmHg) HR (bpm) O2 Sat. RR (bpm) LOC 03:03 PM / % 5 = Fully awake and oriented or at pre-proc level 03:03 PM / % 5 = Fully awake and oriented or at pre-proc level 02:56 PM 125 / 74 67 98 % 31 03:01 PM 135 / 82 56 100 % 30 03:06 PM 136 / 81 57 100 % 11 03:11 PM 129 / 80 64 99 % 32 03:16 PM 118 / 77 64 97 % 10 Procedural Medications Time Medication Dose Units Method Given By 02:54 PM Oxygen 2 L/min nasal cannula Estelle Gaspar RN 03:00 PM Versed 1 mg Intravenous Estelle Gaspar RN 03:00 PM Fentanyl 50 mcg Intravenous Estelle Gaspar RN 03:04 PM Versed 0.5 mg Intravenous Estelle Gaspar RN 03:04 PM Fentanyl 25 mcg Intravenous Estelle Gaspar RN ASA Classification: CLASS II- Mild systemic disease (i.e. well-controlled diabetes, hypertension, asthma, cigarette smoking) Joe Score Preprocedure Postprocedure Activity 2- Moves 4 extremities sustained head lift Activity 2- Moves 4 extremities sustained head lift Circulation 2- SBP +/= 20 points of pre-anesthetic level Circulation 2- SBP +/= 20 points of pre-anesthetic level Consciousness 2- Awake and alert oriented x 3 Consciousness 2- Awake and alert oriented x 3 O2 Saturation 2- Able to maintain O2 satruation of 92% on room air O2 Saturation 2- Able to maintain O2 satruation of 92% on room air Respiratory 2- Able to deep breathe and cough well Respiratory 2- Able to deep breathe and cough well Total Score 10 Total Score 10 Contrast Agent: Isovue Diagnostic Contrast: 47 ml Total Contrast: 47 ml Fluoro Dose: 199 mGy Procedure Log Time Note Enter By 02:30 PM Case Start 02:30 PM CathStat 02:54 PM Pt arrived to supervisor dental laboratory 2 at 14:53 scoates 02:54 PM Princess Dee RT (R) Position: Scrub Time in: 14:54 scoates 02:54 PM Preeti Parra RN Position: Monitor Time in: 14:54 scoates 02:54 PM Estelle Gaspar RN Position: Marine Erector Time in: 14:54 scoates 02:54 PM Patient charges- Angio tray pack, Navilyst 3mm J, Pulse Oximetry and ACIST tubing and transducer scoates 02:54 PM IV Supplies used: J loop Angio Cath. scoates 02:54 PM Case Delayed No scoates 02:54 PM Hair removed from procedure site in procedure lab using clippers. Bilateral groin prepped with Chloraprep by Princess Dee RT (R), safety strap applied then patient was draped. Skin intact. scoates 02:54 PM Physician arrived 14:54 scoates 02:54 PM ASA Class CLASS II- Mild systemic disease (i.e. well-controlled diabetes, hypertension, asthma, cigarette smoking) scoates 02:54 PM Meet and greet completed scoates 02:54 PM Sign in performed according to hospital policy. scoates 02:54 PM Procedure start 14:54 scoates 02:55 PM Time: 14:54 Oxygen on at 2 L/min per nasal cannula by Estelle Gaspar RN scoates 02:55 PM Vitals capture started with the following parameters, Patient=Adult, Interval=5 min, Initial Tmbheoor=762 mmHg, Deflation Rate=5 mmHg, Cuff placed on Right Arm 02:56 PM HR=67 bpm, JNRU=796/74 mmhg, SpO2=98.0 %, Resp=31 B/min 02:58 PM Recorded ECG: HR=59 Condition=Condition 1 02:58 PM Recorded ECG: HR=61 Condition=Condition 1 03:00 PM Time: 15:00 Versed 1 mg Intravenous Given by Estelle Gaspar RN scoates 03:00 PM Time: 15:00 Fentanyl 50 mcg Intravenous Given by Estelle Gaspar RN scoates 03:01 PM HR=56 bpm, MMCM=114/82 mmhg, LpP0=574.0 %, Resp=30 B/min, Comment=SR 03:03 PM Time: 15:03 Patient comfortable and pain free: Yes scoates 03:03 PM Time: 15:03LOC: 5 = Fully awake and oriented or at pre-proc level scoates 03:03 PM Clinical Presentation: Stable angina scoates 03:03 PM Time out performed according to hospital policy scoates 03:04 PM Time: 15:04 Versed 0.5 mg Intravenous Given by Estelle Gaspar RN scoates 03:04 PM Time: 15:04 Fentanyl 25 mcg Intravenous Given by Estelle Gaspar RN scoates 03:05 PM Karyna Strong RN Position: Monitor Time in: 15:05 [email or web address] 03:06 PM HR=57 bpm, JNBS=426/81 mmhg, ErU5=922.0 %, Resp=11 B/min, Comment=SR 03:08 PM 3cc contrast hand injected into right groin [email or web address] 03:08 PM Micro-Introducer Kit utilized for sheath placement [email or web address] 03:08 PM Access obtained by percutaneous puncture. 6Fr 10cm Terumo [place] sheath placed in right Femoral artery. [id number] [email or web address] 03:08 PM 0.035 145cm Navilyst 3mmJ wire [id number] [email or web address] 03:08 PM 5Fr FR 4 catheter inserted over the wire DN [email or web address] 03:09 PM Pressure channel 1 zero failed. 03:09 PM Pressure channel 1 zeroed. 03:10 PM Recorded Pressure: Ao, HR=59, Condition=Condition 1 (Aorta) Ao 107/75/90 03:10 PM RCA angiography performed in multiple views. [email or web address] 03:11 PM HR=64 bpm, ZAHY=235/80 mmhg, SpO2=99.0 %, Resp=32 B/min, Comment=SR 03:11 PM Catheter removed [email or web address] 03:11 PM 5Fr FL 4 catheter inserted over the wire DN [email or web address] 03:12 PM LCA angiography performed in multiple views. [email or web address] 03:13 PM Catheter removed [email or web address] 03:14 PM 5Fr Pigtail catheter inserted over the wire DN [email or web address] 03:14 PM Catheter selectively placed in left ventricle [email or web address] 03:15 PM Recorded Pressure: LV, HR=61, Condition=Condition 1 (Left Ventricle) LV 107/11/12 03:15 PM Recorded Pressure: LV, Ao, HR=65, Condition=Condition 1 (Left Ventricle) LV 105/7/10, (Aorta) Ao 116/72/92 03:16 PM HR=64 bpm, MBGS=725/77 mmhg, SpO2=97.0 %, Resp=10 B/min 03:17 PM Procedure completed at 15:17 [email or web address] 03:18 PM Time: 15:03LOC: 5 = Fully awake and oriented or at pre-proc level [email or web address] 03:18 PM Time: 15:03 Patient comfortable and pain free: [email or web address] 03:18 PM Sign out completed: Radiation Dose 199.11 mGy Fluoro Time: 1.6 Isovue 370 - 200ml contrast 47 ml given by Cinthia Dukes MD. Complications: NoneCardiac Rehab Consult needed: NoConfirmed administered medications: Yes [email or web address] 03:19 PM Isovue 370 - 200ml,1 Bottle(s) used. [email or web address] 03:19 PM Arterial sheath pulled, Angio-seal closure device used and was Successful [id number] S/N. [email or web address] 03:19 PM Post ECG NSR [email or web address] 03:19 PM Post Blood Pressure 118/77 [email or web address] 03:19 PM 15:19 Post Pulses Bilateral DP & PT 2+ [email or web address] 03:19 PM Information taught Cardiac Cath and Angioseal [email or web address] 03:19 PM Education needs Procedure, Plan of Care, and Responsibilities of Patient in Care [email or web address] 03:19 PM Learning barriers :None [email or web address] 03:19 PM Education Methods Verbal [email or web address] 03:19 PM Education evaluation Able to repeat information [email or web address] 03:20 PM Site status No bleeding/hematoma - Rt Groin as reported by Sites, Princess RT (R) at 15:19 [email or web address] 03:20 PM Opsite applied [email or web address] 03:21 PM Opsite applied [email or web address] 03:21 PM Delay to floor No [email or web address] 03:21 PM Family placed in consult room. [email or web address] 03:21 PM Lesion found in Mid LAD. Pre Stenosis: 50 Pre DEZ Flow: [email or web address] 03:21 PM Lesion found in Proximal RCA. Pre Stenosis: 25 Pre DEZ Flow: [email or web address] 03:21 PM Coronary Dominance: Co-dominant [email or web address] 03:23 PM Report given to Rachel JASON Pt taken to 3A Room #66. 15:23 [email or web address] 03:23 PM Patient out of room: 15:23 [email or web address] Complications Complication None Hemodynamics Pressures Site Systolic/A Wave Diastolic/V Wave Mean AO 107 75 90 LV 107 11 12 LV 105 7 10 AO 116 72 92 Post Procedure Information Blood Pressure: 118/77 mmHg Rhythm: NSR Post procedural instructions were given Closure Device Time Device Success/Fail 02/05/2017 3:22:00 PM Angio-Seal VIP Successful Site Checks Time Location Status Staff Sheath In? Note 03:19 PM Rt Groin No bleeding/hematoma Sites, Princess RT (R) Pulses Time Site Pre-Procedure Post-Procedure Note 02/05/2017 2:31:00 PM Bilateral DP & PT 2+ 3:19:00 PM Bilateral DP & PT 2+ Updated by Karyna Colon RN on 02/05/2017 3:24:24 PM electronically signed on 02/05/2017 3:24:55 PM with status of Final
--- NOTE | 2017-02-05 16:39 | Event Note ---
Date of Encounter: 02/05/17 Time of Encounter: 16:30 - Cardiology Event Note Catheterization showed nonobstructive CAD with mid LAD 50% and proximal circumflex 25% lesions. Recommend continue with aspirin and statin. Smoking cessation reinforced and highly encouraged. Cardiology will sign off, we counseled as needed, anticipate discharge home today, follow-up scheduled. All questions answered.
--- NOTE | 2017-02-05 16:58 | Discharge Summary ---
Date of Encounter: 02/05/17 Time of Encounter: 10:15 - Discharge Diagnosis (1) Chest pain Priority: Primary Status: Acute Comments: Pt reports intermittent chest pain for 5 years. On the day of admission, pt had left chest pain that she states was sharp and radiated into her left mid back and left arm. She said that it started out to be intermittent, then became stead. Onset at 0400 and was relieved with nitroglycerin in the ED. Pt has been pain free since. Chest xray negative. Echocardiogram with LVEF of 65%, normal LV chamber size and function, mild concentric LVH, trace MR. Bilateral carotids are essentially normal. Troponins negative. Patient has stress test with a gaited EF of 60% and a medium sized, moderate intensity, mostly reversible inferior perfusion defect suggestive of ischemia. Pt had LHC which showed single vessel disease, no intervention. ASA 81mg po daily and statin for discharge Qualifiers: Chest pain type: other chest pain Qualified Code(s): R07.89 - Other chest pain; R07.8 - Other chest pain (2) GERD (gastroesophageal reflux disease) Priority: Secondary Status: Chronic Comments: Patient reports chronic GERD symptoms that have been increasing over time. She had recent endoscopy in December,. Normal duodenum, gastritis, biopsies taken. Patient will continue home medications and follow-up with primary care after discharge. Qualifiers: Esophagitis presence: esophagitis presence not specified Qualified Code(s) : K21.9 - Gastro-esophageal reflux disease without esophagitis (3) Tobacco abuse Priority: Secondary Status: Chronic Comments: Patient reports smoking 1 pack cigarettes per day. She says that she is interested in quitting, however every method I discussed with her she did not want to try. Pt smokes about 1 PPD, is agreeable to nicotine patches. (4) Arthritis Priority: Secondary Status: Chronic Comments: Chronic. Continue medications from home. (5) Dizziness Priority: Secondary Status: Resolved Comments: Patient reports dizziness, acute onset that was accompanied by above-mentioned chest pain that brought her to the emergency department. She denies dizziness since arrival. Resolved. No electrolyte or laboratory abnormalities. Vitals have been stable. (6) DVT prophylaxis Priority: Secondary Status: Acute Comments: Lovenox subcutaneous. - Discharge Medications Prescriptions: Aspirin Enteric Coated [Aspirin EC] 81 mg PO QAM #30 tablet. Nicotine Patch [Nicoderm] 14 mg TD DAILY #30 patch.td24 Simvastatin [Zocor] 20 mg PO QPM #30 tablet Home Medications: Ibuprofen [Motrin] 800 mg PO Q8HR 04/02/15 [History] Pantoprazole Sodium [Protonix] 40 mg PO QAM 04/02/15 [History] Ranitidine HCl [Zantac] 150 mg PO BID 04/02/15 [History] Venlafaxine [Effexor] 75 mg PO BID 04/02/15 [History] clonazePAM [Klonopin] 0.5 mg PO BID 04/02/15 [History] hydrOXYzine HCl [Hydroxyzine HCl] 25 mg PO Q4-6H PRN 04/02/15 [History] Buspirone HCl [Buspar] 10 mg PO BID 02/04/17 [History] Aspirin Enteric Coated [Aspirin EC] 81 mg PO QAM #30 tablet. 02/05/17 [Rx] Nicotine Patch [Nicoderm] 14 mg TD DAILY #30 patch.td24 02/05/17 [Rx] Simvastatin [Zocor] 20 mg PO QPM #30 tablet 02/05/17 [Rx] Allergies/Adverse Reactions: 3 Allergy/AdvReac Type Severity Reaction Status Date / Time No Known Allergies Allergy Verified 11/14/16 11:05 Procedures/tests Complete & Pending: Procedures Performed prior 72 hours Category Date Time Status CL Cardiac Catheterization [CL] Routine Hay Stacker Operator 02/05/17 14:17 Completed NM tamara perf SPECT multi [NM] Routine Exams 02/05/17 06:18 Taken Date of admission: 02/04/17 12:12 Primary care physician: Curt Juarez DO Consults: 02/04/17 14:14 Consult to Double Cutter [CONS] Routine Reason for SW Consult: needs help with medicine and finances at discharge. 02/05/17 10:32 Consult to Cardiology [CONS] Routine Comment: Consulting Provider: Cardiology Arlen Reason for Consult: abnormal stress Time Notified: 10:33 Call Completed: Yes Discharging clinician: Shamika Gonzáles Anticipated date of discharge: 02/05/17 - Patient Status Disposition: Home, Self-Care Condition: Good Functional capacity at discharge: independent ambulation - Discharge Instructions Follow Up With: Curt Juarez DO [Primary Care Provider] - Additional Instructions: Follow up with cardiology as scheduled Follow up with your PCP in the next 7-10 days for a follow up visit. Return to the ER as needed for any other problems or concerns. Resume your normal activities and diet as tolerated. Stop smoking. Start your new prescriptions tomorrow morning. - Diet and Activity Activity: increase activity as tolerated Diet: advance to your usual diet Interval History: Please see assessment and plan for hospital course. Hospital course: Ms. Jesus is a 46 year old female - Time Spent with Patient Total time spent providing and/or coordinating discharge services: - Constitutional Vitals: Temp Pulse Resp BP Pulse Ox 98.1 F 57 18 116/79 97 02/05/17 15:42 02/05/17 16:41 02/05/17 16:41 02/05/17 16:41 02/05/17 16:41 General appearance: Present: cooperative, A&O X 3, pleasant, no acute distress, obese, answers questions appropriately - Head Head exam: Present: atraumatic, normocephalic - Eye Eye exam: Present: PERRL, conjuntiva pink, sclera anicteric Pupils: Present: PERRL - Neck Neck exam general surgery: Present: supple, trachea midline. Absent: lymphadenopathy - Respiratory Respiratory exam: Present: CTAB. Absent: accessory muscle use, rales, rhonchi, wheezes - Cardiovascular Cardiovascular exam: Present: RRR, +S1, +S2. Absent: diastolic murmur, gallop, rubs, systolic murmur - GI/Abdominal GI/Abdominal exam: Present: normal bowel sounds, soft. Absent: distended, tenderness - Extremities Exam Extremities exam: Present: normal capillary refill, normal inspection, warm, radial pulses palpable and symmetrical. Absent: calf tenderness, cyanotic, pedal edema - Neurological Exam Neurological exam: Present: alert, oriented X3, no focal deficits. Absent: facial droop, speech deficit - Skin Skin exam: Present: dry, intact, normal color, warm. Absent: rash
[2017-02-05 17:28] VITALS: BP 131/86
== END 2017-02-05 18:27 | disposition home or self-care (01) ==
LOC: EMEROO 10:03 → 3BNU 10:03
PROVIDERS: ADMIT Internal Medicine; ATTEND Registered Nurse